=== PATIENT | female | born 1990 | race Caucasian/White ===

== ENCOUNTER 2020-07-15 08:14 | Emergency (ER) | payer BC, SELFPAY ==
--- NOTE | ~2020-07-15 | CT_ITS ---
EXAMINATION: CT abdomen pelvis w con EXAM DATE: 07/15/2020 09:03 INDICATION: Right flank pain with urinary frequency. TECHNIQUE: Spiral CT of the abdomen and pelvis was performed following intravenous injection of 100 m L Omnipaque 350. Axial, coronal and sagittal images were reviewed. The dose-length product (DLP) fo r this examination was 504.91 mGy-cm. The exposure was tailored according to patient size (auto mA e xposure control), and iterative reconstruction (ASIR) was used as additional dose reduction technique . There is no prior study for comparison. FINDINGS: The liver, spleen, adrenal glands and pancreas are unremarkable. Gallbladder is unremarkab le. No biliary obstruction. There is a 3.5 mm stone in the right ureterovesicular junction. There i s mild right-sided delayed nephrogram and mild hydroureteronephrosis. No other genitourinary stones. The uterus is anteverted and morphologically normal. The bladder is collapsed at time of imaging li miting evaluation. There is no retroperitoneal or pelvic lymphadenopathy. The appendix is normal. The stomach and small bowel are unremarkable. There is expected amount of c olonic stool. No free intraperitoneal gas. The heart is normal in size. There are no pericardial or pleural effusions. The lung bases are unremarkable. The bones are unremarkable.. IMPRESSION: 1. Right UVJ 3.5 mm stone, mild obstructive nephropathy. Reviewed, dictated and finalized at location A.
[2020-07-15 08:20] VITALS: BP 117/89; PULSE 78; RESP 18; O2SAT 100
--- NOTE | 2020-07-15 08:26 | ED.GENADULT ---
HPI - General Adult General Chief complaint: Back Pain/Injury Stated complaint: right abd pain Time Seen by Provider: 07/15/20 08:17 Source: RN notes reviewed History of Present Illness HPI narrative: Patient presents emergency department from home for right abdominal pain. Patient states symptoms began this morning. Pain is located the right side the abdomen described as sharp and stabbing with radiation to the back. Associate with nausea vomiting. Denies any fevers or chills chest pain shortness of breath diarrhea or any other symptoms. States she took no previous pain medication at home for the symptoms Related Data Allergies Allergy/AdvReac Type Severity Reaction Status Date / Time No Known Allergies Allergy Unknown Verified 07/15/20 08:20 Review of Systems Review of Systems: Narrative: Gen.: Denies fevers or chills ENT: Denies congestion Respiratory: Denies shortness of breath or cough CV: Denies chest pain or palpitations GI: See HPI denies burning, urgency, frequency or hematuria Musculoskeletal: Denies back pain or muscle pain Neuro: Denies numbness, tingling, weakness or focal weakness Skin: Denies rash Except as documented, all other systems reviewed and negative PMFSH Past Medical History Medical History (Updated 07/15/20 @ 10:36 by Gigi Romeo DO) Patient denies significant medical history Social History Social History (Updated 07/15/20 @ 08:27 by Gigi Romeo DO) Smoking status: Never smoker Gender identity (if verbalized by the patient): Female Exam Narrative: Exam Narrative: APPEARANCE: No acute distress, nontoxic, resting in bed HEENT: Normocephalic, atraumatic, OMM RESPIRATORY: No respiratory distress, clear to auscultation bilaterally with no rhonchi wheezing or rales CARDIOVASCULAR: RRR s murmur ABDOMINAL: Soft, nondistended, tender palpation right upper quadrant right lower quadrant, no tenderness left upper quadrant left lower quadrant, no rebound or guarding MUSCULOSKELETAl: Moves all extremities. No clubbing, cyanosis or edema. NEURO: Awake and alert. Following commands, speech normal, no focal deficits SKIN:: Warm, dry. Normal Color PSYCHIATRIC: Normal affect/mood Course Course Emergency Course: Discussed with patient results of workup and diagnosis. Discussed need for follow-up with primary care, proper use of medication, and reasons to return to the emergency department. Patient understands and agrees to current treatment plan Vital Signs Vital signs: Vital Signs Pulse Rate 78 07/15/20 08:20 Respiratory Rate 18 07/15/20 08:20 Blood Pressure 117/89 07/15/20 08:20 Pulse Oximetry 100 07/15/20 08:20 Temperature 98.2 F 07/15/20 09:28 Pulse Rate 77 07/15/20 10:08 Respiratory Rate 12 07/15/20 10:08 Blood Pressure 117/76 07/15/20 10:08 Pulse Oximetry 96 07/15/20 10:08 Medical Decision Making Vital Signs Vital Signs: Vital Signs Pulse Rate 78 07/15/20 08:20 Respiratory Rate 18 07/15/20 08:20 Blood Pressure 117/89 07/15/20 08:20 Pulse Oximetry 100 07/15/20 08:20 Temperature 98.2 F 07/15/20 09:28 Pulse Rate 77 07/15/20 10:08 Respiratory Rate 12 07/15/20 10:08 Blood Pressure 117/76 07/15/20 10:08 Pulse Oximetry 96 07/15/20 10:08 Lab Data Result diagrams: 07/15/20 08:29 07/15/20 08:29 Labs: Lab Results 07/15/20 07/15/20 07/15/20 Range/Units 08:29 08:29 08:29 WBC 6.6 (4.5-10.0) K/mm3 RBC 3.97 L (4.2-5.4) M/mm3 Hgb 11.1 L (12.0-15.0) g/dL Hct 33.6 L (37.0-47.0) % MCV 84.6 (80-100) fl MCH 28.0 (26-34) pg MCHC 33.0 (32-36) g/dl RDW 13.1 (11.5-14.5) % Plt Count 334 (150-375) k/mm3 MPV 9.7 (7.4-10.4) fl Immature Gran % (Auto) 0.3 (0-0.5) % Neut % (Auto) 45.9 (45.5-73.1) % Lymph % (Auto) 39.3 (18.3-44.2) % Glades % (Auto) 10.8 H (2.6-8.5) % Eos % (Auto) 3.2 (0-4.4) % Baso % (Auto) 0.
[2020-07-15] MEDS: MORPHINE SULFATE (*CRX) 4 MG/ML INJ IV PUSH ×2 (08:30→10:03)
[2020-07-15] MEDS: ONDANSETRON INJ 4 MG/2 ML VIAL IV PUSH (08:30)
[2020-07-15] MEDS: SODIUM CHLORIDE 0.9% IV 1,000 ML 999 ML IV CONT (08:30)
[2020-07-15 08:41] LABS: Basophils Percent Auto 0.5 % (0.2-1.2); Eosinophils Absolute Auto 0.2 K/mm3 (0-0.3); Eosinophils Percent Auto 3.2 % (0-4.4); Hematocrit 33.6 % (37.0-47.0); Hemoglobin 11.1 g/dL (12.0-15.0); Immature Granulocyte Absolute 0.02 K/mm3 (0.00-0.031); Immature Granulocyte Percent A 0.3 % (0-0.5); Lymphocytes Absolute Auto 2.58 K/mm3 (0.9-3.2); Lymphocytes Percent Auto 39.3 % (18.3-44.2); Mean Corpuscular Volume 84.6 fl (80-100); Mean Platelet Volume 9.7 fl (7.4-10.4); Monocytes Absolute Auto 0.7 K/mm3 (0.1-0.6); Monocytes Percent Auto 10.8 % (2.6-8.5); Neutrophils Percent Auto 45.9 % (45.5-73.1); Platelet Count Result 334 k/mm3 (150-375); Red Blood Count 3.97 M/mm3 (4.2-5.4); Red Cell Distribution Width 13.1 % (11.5-14.5); White Blood Count 6.6 K/mm3 (4.5-10.0)
[2020-07-15 08:47] LABS: Add Urine Microscopic? YES; Appearance Urine Cloudy (Clear); Bilirubin Urine Negative (Negative); Blood Urine Negative (Negative); Color Urine Yellow (Yellow); Glucose Urine UA Negative (Negative); Ketones Urine 1+ mg/dL (Negative); Leukocyte Esterase Ur Trace LEU/UL (Negative); Mucus Urine Rare /lpf; Nitrate Urine Negative (Negative); Protein Urine 1+ mg/dL (Negative); Specific Grav Ur 1.025 (1.001-1.035); Squamous Epithelial Cell Urine Many /hpf (Few); Urobilinogen Urine Negative mg/dL (<2.0); WBC Urine 0-3 /hpf
[2020-07-15 08:54] LABS: Alanine Aminotransferase 16 U/L (4-35); Albumin Level 4.3 g/dL (3.5-5.1); Alkaline Phosphatase 73 U/L (38-126); Anion Gap 13 mmol/L (8-16); Aspartate Amino Transferase 23 U/L (14-36); Bilirubin,Total 0.3 mg/dL (0.2-1.3); Blood Urea Nitrogen 13 mg/dL (7-17); Calcium 9.3 mg/dL (8.4-10.2); Carbon Dioxide 23 mmol/L (22-30); Chloride 103 mmol/L (98-107); Estimated CRCL calculation 107 ml/min; Estimated Glomerular Filt Rate > 60; Glucose 141 mg/dL (65-105); Lipase 79 U/L (23-300); Potassium 3.8 mmol/L (3.4-5.0); Sodium 139 mmol/L (137-145)
--- NOTE | 2020-07-15 08:55 | PC.NURSE ---
Patient to CT via stretcher.
[2020-07-15] MEDS: KETOROLAC 30 MG/ML VIAL (*BKC) IV PUSH (09:25)
[2020-07-15 09:28] VITALS: BP 132/68; PULSE 74; TEMP 36.8; O2SAT 98
[2020-07-15] MEDS: TAMSULOSIN HCL 0.4 MG CAPSULE PO (10:03)
[2020-07-15 10:08] VITALS: BP 117/76; PULSE 77; RESP 12; O2SAT 96
[2020-07-15 10:51] VITALS: BP 129/68; PULSE 78; RESP 14; O2SAT 98
== END 2020-07-15 10:53 | disposition home or self-care (01) ==
PROVIDERS: Emergency Provider Emergency Medicine; PCP Physician Assistant Medical
DX: N13.8 Other obstructive and reflux uropathy (principal); N20.0 Calculus of kidney
CPT/HCPCS: 36415; 74177; 80053; 81001; 81025; 83690; 85025; 96361; 96365; 96375; 96376; 99284; A9270; J0131; J1885; J2270; J2405; J7030; Q9967

== ENCOUNTER 2023-09-27 08:55 | Emergency (ER) | payer BC, SELFPAY ==
[2023-09-27 09:16] VITALS: BP 110/63; PULSE 109; RESP 18; TEMP 36.9; O2SAT 99
--- NOTE | 2023-09-27 09:28 | ED.URI ---
HPI - URI/Sore Throat General Chief Complaint: Upper Respiratory Infection Stated Complaint: headache,fever,congestion Time Seen by Provider: 09/27/23 09:28 Source: patient, RN notes reviewed and old records reviewed Mode of arrival: ambulatory Limitations: no limitations History of Present Illness HPI Narrative: 33-year-old female presents with complaints of headache, sinus pressure, sinus congestion, postnasal drip, and fever this started 2-3 days ago. Patient denies cough, chest pain, dizziness, weakness, vomiting. MD elicited complaint: nasal congestion and sinus pain Onset (ago): day(s) (2-3) Related Data Allergies Allergy/AdvReac Type Severity Reaction Status Date / Time No Known Allergies Allergy Unknown Verified 10/27/22 10:22 Review of Systems Constitutional: Constitutional: Reports as per HPI, Reports no additional constitutional complaints and Reports headache(s) Eyes: Eyes: Reports no additional eye complaints ENT: Reports as per HPI, Reports nasal congestion, Reports nasal discharge, Reports post nasal drip and Reports sinus pressure Cardiovascular: Cardiovascular: Reports no additional cardiovascular complaints Respiratory: Respiratory: Reports no additional respiratory complaints Neurologic: Reports system reviewed and no additional complaints, except as documented PMF Past Medical History Medical History Patient denies significant medical history Social History Social History (Updated 10/27/22 @ 10:23 by Lu Herrera) Smoking status: Never smoker Alcohol intake: current Substance use: never Substance use type: does not use Lack of Transportation: No Lack of Food: Never True Current Housing: I Have Housing Concerned About Future Housing: No Difficulty Paying Gas/Electric Bills: No Difficulty Paying for Meds: No Currently Unemployed: No Education: High School Diploma/GED Difficulty w/ Childcare or Family Care: No Living arrangements: with family Occupation/Education: occupation Gender identity (if verbalized by the patient): Female Sexual Orientation (if Verbalized by the Patient): Straight or Heterosexual Comments At the time of my signature, I reviewed and agree with the nursing past medical, surgical, social, and family history. There is no relevant family history pertinent to the patient complaint. Exam Const: General: cooperative, healthy appearing, no acute distress and well nourished Nutritional Appearance: well nourished Orientation/consciousness: patient oriented x3 Limitations: no limitations HENMT: Head: normal to inspection and normocephalic Ears: external ears normal, TM's normal bilaterally, mastoids normal and Abnormal EAC present Face/Nose/Sinus: normal facial exam Face and sinus: normal facial exam Mouth: Yes Normal oral and palatal mucosa present, Yes oropharynx normal and Yes moist mucous membranes Throat: posterior oropharynx normal, tonsils normal, uvula midline and no uvular edema Eyes: General: appearance normal, both eyes and all related structures Sclera: sclerae normal Pupils: Equal, round and reactive pupils present Resp: Effort & Inspection: normal respiratory effort, able to speak in complete sentences, no audible wheezes, no cough, no respiratory distress and no retractions Auscultation: clear to auscultation bilaterally, no crackles, no rales, no rhonchi and no wheezes Cardio: Rate: regular rate Rhythm: regular rhythm Skin: General skin exam: normal color and no rashes or lesions noted Neuro: General: patient oriented x3 Cranial nerves: Yes Equal, round and reactive pupils present Psych: Appearance: grossly normal Course Course Emergency Course: Patient is aware of diagnosis, understands and agrees to treatment plan.? Anticipatory guidance given.? Patient agrees to follow-up as directed and is aware of reasons to seek care at the emergency department.
== END 2023-09-27 10:05 | disposition home or self-care (01) ==
PROVIDERS: Emergency Provider Registered Nurse; PCP Physician Assistant Medical
DX: J02.0 Streptococcal pharyngitis (principal)
CPT/HCPCS: 87880; 99213; G0463